=== PATIENT | female | born 1985 | race Caucasian/White ===

== ENCOUNTER → 2023-11-27 | Emergency (ER) | payer SELFPAY ==
[~2023-11-27] MED LIST: DIAZEPAM 5 MG TABLET ONE; LORazepam 2 MG/ML VIAL ONE; lisinopriL 20 MG TAB ONE
[2023-11-27 13:49] LABS: Specific Gravity 1.008 (1.005-1.030)
[2023-11-27 13:50] LABS: Absolute Basophils 0.1 K/uL (0-0.5); Absolute Eosinophils 0.2 K/uL (0-0.5); Absolute Lymphocytes (CBC) 1.7 K/uL (0.7-4.9); Absolute Monocytes 0.6 K/uL (0.1-1.3); Absolute Neutrophil 5.1 K/uL (1.8-8.0); Basophils % 1.1 % (0-1.3); Eosinophils % 2.2 % (0-4.4); Hematocrit 39.6 % (36.0-45.0); Hemoglobin 13.4 g/dL (12.0-15.0); MCH 28.8 pg (27.0-35.0); MCHC 33.9 g/dL (32.0-36.0); MCV 84.9 fL (80-100); MPV 7.3 fL (7.6-11.3); Monocytes % 8.2 % (3.3-12.3); Neutrophils % 66.5 % (41.7-73.7); Nucleated Red Blood Cells % 0.1 % (0-0); Platelets 338 thou/uL (152-406); RBC Red Blood Cell Count 4.67 M/uL (3.86-4.86); Red Cell Distribution Width 16.6 % (12.1-15.2)
[2023-11-27 13:51] LABS: Specific Gravity 1.008 (1.005-1.030); Sqamous Epithelial <5 /HPF (None Seen); Urine Bacteria None Seen /HPF (<20); Urine Bilirubin NEGATIVE (Negative); Urine Blood Negative (Negative); Urine Clarity Turbid (Clear); Urine Color Colorless (Yellow); Urine Culture Reflex Order NOT NEEDED; Urine Glucose NEGATIVE (Negative); Urine Ketones NEGATIVE (Negative); Urine Microscopic Reflex YN ORDER UMIC; Urine Nitrite NEGATIVE (Negative); Urine Protein NEGATIVE (Negative); Urine RBC <5 /HPF (None Seen); Urine Urobilinogen Normal (Normal); Urine WBC <5 /HPF (<5); Urine pH 6.5 (5.0-7.0)
[2023-11-27 14:34] LABS: Barbiturates NEGATIVE (NEGATIVE); Benzodiazepines NEGATIVE (NEGATIVE); Cocaine NEGATIVE (NEGATIVE); METHAMPHETAM NEGATIVE (NEGATIVE); Methadone NEGATIVE (NEGATIVE); Opiates NEGATIVE (NEGATIVE); Phencyclidine NEGATIVE (NEGATIVE); THC Cannibis NEGATIVE (NEGATIVE)
[2023-11-27 14:40] LABS: Platelet Estimate ADEQ; White Blood Cell Scan OK (OK)
[2023-11-27 14:41] LABS: Blood Morphology Comment NOT SEEN (NOT SEEN)
[2023-11-27 14:51] LABS: PT Prothrombin Time 11.4 SECONDS (9.5-12.5); PTT, Activated Partial Thromb 34.4 SECONDS (24.3-36.9); Protime INR 1.04
[2023-11-27 15:04] LABS: ALT/SGPT 40 U/L (13-56); AST/SGOT 20 U/L (15-37); Albumin 3.7 g/dL (3.4-5.0); Albumin/Globulin Ratio 0.9 (1.1-1.8); Alkaline Phosphatase 74 U/L (45-117); Anion Gap 7.9 mEq/L (5.0-15.0); BUN Blood Urea Nitrogen 12 mg/dL (7-18); Bicarbonate 27 mEq/L (21-32); Bilirubin Direct 0.1 mg/dL (0-0.2); Bilirubin Indirect, Calculated 0.2 mg/dL (0.2-0.8); Bilirubin Total 0.3 mg/dL (0.2-1.0); Globulin 4.2 g/dL (2.3-3.5); Glomerular Filtration Rate 76 ml/min (=/>90); Glucose Level 101 mg/dL (74-106); Potassium 3.9 mEq/L (3.5-5.1); Protein, Total 7.9 g/dL (6.4-8.2); Sodium Level 138 mEq/L (136-145)
--- NOTE | 2023-11-27 15:32 | EDPHYS ---
Physician Documentation [facility] Name: Jenise Rubio Age: 38 yrs Sex: Female : 1985 Arrival Date: 11/27/2023 Time: 13:14 Bed 15 Private MD: ED Physician Axel Henson HPI: 11/26 13:20 This 38 yrs old Female presents to ER via Unassigned with complaints of suicidal kb ideations. 13:21 Patient is a 38-year-old female who presents for suicidal ideations that started 2 days kb ago. Patient is currently at [facility] for rehab and states that her plan was to either cut her wrist or walk into traffic. Patient states she knows she needs to be hospitalized for this because she has had a previous attempt approximately 10 years ago.. 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 - Social history:: Smoking status: Patient denies any tobacco usage or history of. ROS: 13:20 Constitutional: As per HPI kb Exam: 13:20 Constitutional: This is a well developed, well nourished patient who is awake, alert, kb and in no acute distress. Head/Face: Normocephalic, atraumatic. ENT: Moist Mucous membranes Cardiovascular: Regular rate Respiratory: Respirations even and unlabored. No increased work of breathing. Talking in full sentences Abdomen/GI: Soft, non-tender. No distention Skin: Warm, dry with normal turgor. Normal color. MS/ Extremity: Pulses equal, no cyanosis. Neurovascular intact. Full, normal range of motion. Neuro: Awake and alert, GCS 15, oriented to person, place, time, and situation. Moves all extremities. Normal gait. 13:22 Psych: Behavior/mood is pleasant, cooperative, Affect is calm, Oriented to person, kb place, time, Patient having thoughts of suicide. Plan for suicide is cut wrist or walk into traffic 13:52 ECG was reviewed by the Attending Physician. kb Vital Signs: 13:22 BP 145 / 74; Pulse 84; Resp 18; Temp 98; Pulse Ox 99% on R/A; Weight 79.38 kg; Height 5 mb9 ft. 2 in. ; Pain 0/10; 21:38 BP 111 / 72; Pulse 76; Resp 19; Temp 98.9; Pulse Ox 97% on R/A; vk 11/27 06:46 BP 129 / 92; Pulse 92; Resp 19; Temp 98.1; Pulse Ox 97% on R/A; vk 11/26 13:22 Body Mass Index 32.01 (79.38 kg, 157.48 cm) mb9 11/26 13:22 Pain Scale: Adult mb9 MDM: 11/26 13:17 Patient medically screened. kb 13:22 Differential diagnosis: acute psychotic break, depression, suicidal ideations. Data kb reviewed: vital signs, nurses notes. Historians other than the Patient: EMS: [facility]. 15:31 Counseling: I had a detailed discussion with the patient and/or guardian regarding the kb historical points, exam findings, and any diagnostic results supporting the discharge/admit diagnosis, lab results, the need to transfer to another facility, [facility] does not immediately have the required specialist. 11/27 06:27 ED course: Was accepted to [facility] 6:2 8 in the morning. Plan to sp4 transfer with EMS.. 11/26 13:17 Order name: Acetaminophen; Complete Time: 15:13 kb 11/26 13:17 Order name: Basic Metabolic Panel; Complete Time: 15:13 kb 11/26 13:17 Order name: CBC with Diff; Complete Time: 14:42 kb 11/26 13:17 Order name: ETOH Level; Complete Time: 15:13 kb 11/26 13:17 Order name: Hepatic Function; Complete Time: 15:13 kb 11/26 13:17 Order name: PT-INR; Complete Time: 14:52 kb 11/26 13:17 Order name: Test, Urine; Complete Time: 13:51 kb 11/26 13:17 Order name: Ptt, Activated; Complete Time: 14:52 kb 11/26 13:17 Order name: Salicylate; Complete Time: 16:21 kb 11/26 13:17 Order name: Urinalysis w/ reflexes; Complete Time: 13:51 kb 11/26 13:17 Order name: Urine Drug Screen; Complete Time: 14:42 kb 11/26 14:41 Order name: CBC Smear Scan; Complete Time: 14:42 EDMS 11/26 13:17 Order name: EKG; Complete Time: 13:18 kb 11/26 13:17 Order name: EKG - Nurse/Tech; Complete Time: 13:30 kb 11/26 13:17 Order name: IV Saline Lock; Complete Time: 13:35 kb 11/26 13:17 Order name: Labs collected and sent; Complete Time: 13:35 kb 11/26 13:17 Order name: Suicide Precautions; Complete Time: 13:30 kb 11/26 13:17 Order name: Suicide Screening ([place]); Complete Time: 13:30 kb 11/26 13:57 Order name: Labs - recollect needed: all specimens; Complete Time: 14:17 ll1 EC/20 13:52 Rate is 95 beats/min. Rhythm is regular. QRS [place] is Normal. GA interval is normal at kb 134 msec. QRS interval is normal at 94 msec. QT interval is normal at 452 msec. Administered Medications: 14:24 Drug: Ativan IVP 1 mg IVP once Route: IVP; Site: right antecubital; mb9 16:26 Follow up: Response: No adverse reaction mb9 23:05 Drug: Ativan (LORazepam) 1 mg IVP once Route: IVP; Site: right antecubital; vc1 11/27 05:57 Follow up: Response: No adverse reaction; Marked relief of symptoms jw7 06:53 Drug: Lisinopril PO 20 mg PO once Route: PO; jw7 07:12 Follow up: Response: No adverse reaction bp 06:53 Drug: Diazepam PO 10 mg PO once Route: PO; jw7 07:12 Follow up: Response: No adverse reaction bp 07:10 Not Given (MED UNAVAILABLEe): [id number] mcg PO once bp Disposition: 06:27 Co-signature as Attending Physician, Axel Henson MD I agree with the assessment sp4 and plan of care. I reviewed the patient's care provided by Advanced Practice Provider \T\ agree w/ the diagnosis \T\ care plan. I personally saw the pt \T\ performed a substantive portion of the visit, incldng all aspects of the (History/Exam/Medical Decision Making). Disposition Summary: 11/27/23 15:32 Transfer Ordered Notes: Transfer Location: Psych Facility kb Reason: Higher level of care kb Condition: Stable kb Problem: new kb Symptoms: are unchanged kb Accepting Physician: Blanca Dash MD (11/28/23 07:13) bp Diagnosis - Suicidal ideations kb Forms: - Medication Reconciliation Form kb - SBAR form kb Signatures: Dispatcher [employer] EDMS Denice Andrew, SEAT BUILDER-C SEAT BUILDER-Jatinder [place], RN RN bp Amado Velazquez RN RN ll1 Cami Gamez RN RN vc1 Abbey Noonan RN RN jw7 Melody Greco RN RN mb9 Axel Henson MD MD sp4 Corrections: (The following items were deleted from the chart) 06:27 11/26 15:32 dR sorto sp4 11/27 07:13 06:27 Blanca Dash MD sp4 bp
--- NOTE | 2023-11-27 15:32 | ER ---
Nurse's Notes [facility] Name: Jenise Rubio Age: 38 yrs Sex: Female : 1985 Arrival Date: 11/27/2023 Time: 13:14 Bed 15 Private MD: Diagnosis: Suicidal ideations Presentation: 11/26 13:22 Chief complaint: EMS states: "toned out for having suicidal thoughts after leaving [facility] rehab for alcohol abuse. Pt states since starting medicine for Bipolar, Invega, she's been having these thoughts. Pt states she wants to cut herself and run into ongoing traffic.". Coronavirus screen: Vaccine status: Patient reports being unvaccinated. Ebola Screen: No symptoms or risks identified at this time. Initial Sepsis Screen: Does the patient meet any 2 criteria? No. Patient's initial sepsis screen is negative. Does the patient have a suspected source of infection? No. Patient's initial sepsis screen is negative. Risk Assessment: Do you want to hurt yourself or someone else? Patient reports desire/thoughts of hurting themselves or someone else. Provider notified. Onset of symptoms was November 27, 2023. 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 - Social history:: Smoking status: Patient denies any tobacco usage or history of. Screenin:28 [facility] ED Fall Risk Assessment (Adult) History of falling in the last 3 months, 9 including since admission No falls in past 3 months (0 pts) Confusion or Disorientation No (0 pts) Intoxicated or Sedated No (0 pts) Impaired Gait No (0 pts) Mobility Assist Device Used No (0 pt) Altered Elimination No (0 pt) Score/Fall Risk Level 0 - 2 = Low Risk Oriented to surroundings, Maintained a safe environment, Educated pt \\T\\ family on fall prevention, incl call for assistance when getting out of bed. Abuse screen: Denies threats or abuse. Nutritional screening: No deficits noted. Tuberculosis screening: No symptoms or risk factors identified. Assessment: 13:20 Reassessment: SI precautions in place. Sitter at bedside. mb9 13:28 General: Appears in no apparent distress. Behavior is calm, cooperative. Pain: Denies mb9 pain. Neuro: Lozano Agitation-Sedation Scale (RASS): 0 - Alert and Calm Level of Consciousness is awake, alert, obeys commands, Oriented to person, place, time, situation, Appropriate for age. Cardiovascular: Patient's skin is warm and dry. Respiratory: Airway is patent Respiratory effort is even, unlabored, Respiratory pattern is regular, symmetrical. GI: Abdomen is round non-distended. : No signs and/or symptoms were reported regarding the genitourinary system. EENT: No signs and/or symptoms were reported regarding the EENT system. Derm: Skin is pink, warm \\T\\ dry. Musculoskeletal: Range of motion: intact in all extremities. 14:20 Reassessment: Patient and/or family updated on plan of care and expected duration. Pain mb9 level reassessed. Patient is alert, oriented x 3, equal unlabored respirations, skin warm/dry/pink. SI precautions in place. Sitter at bedside. 15:20 Reassessment: Patient and/or family updated on plan of care and expected duration. Pain mb9 level reassessed. Patient is alert, oriented x 3, equal unlabored respirations, skin warm/dry/pink. SI precautions in place. Sitter at bedside. 16:20 Reassessment: Patient and/or family updated on plan of care and expected duration. Pain mb9 level reassessed. Patient is alert, oriented x 3, equal unlabored respirations, skin warm/dry/pink. SI precautions in place. Sitter at bedside. 17:20 Reassessment: Patient and/or family updated on plan of care and expected duration. Pain mb9 level reassessed. Patient is alert, oriented x 3, equal unlabored respirations, skin warm/dry/pink. SI precautions in place. Sitter at bedside. 18:20 Reassessment: Patient and/or family updated on plan of care and expected duration. Pain mb9 level reassessed. Patient is alert, oriented x 3, equal unlabored respirations, skin warm/dry/pink. SI precautions in place. Sitter at bedside. 20:00 General: Appears in no apparent distress. comfortable, Behavior is calm, cooperative, vc1 drowsy. Pain: Denies pain. Neuro: Level of Consciousness is awake, obeys commands, lethargic, Oriented to person, place, time, situation, Appropriate for age. Cardiovascular: Patient's skin is warm and dry. Cardiovascular: Heart tones S1 S2. Respiratory: Airway is patent Respiratory effort is even, unlabored, Respiratory pattern is regular, symmetrical, Breath sounds are clear. GI: No deficits noted. No signs and/or symptoms were reported involving the gastrointestinal system. GI: No deficits noted. No signs and/or symptoms were reported involving the gastrointestinal system. Abdomen is round non-distended. : No deficits noted. No signs and/or symptoms were reported regarding the genitourinary system. EENT: No deficits noted. No signs and/or symptoms were reported regarding the EENT system. Derm: No deficits noted. Skin is pink, warm \\T\\ dry. Musculoskeletal: No deficits noted. No signs and/or symptoms reported regarding the musculoskeletal system. 11/27 05:00 General: Appears in no apparent distress. comfortable, Behavior is calm, cooperative. jw7 Pain: Denies pain. Neuro: Lozano Agitation-Sedation Scale (RASS): 0 - Alert and Calm Level of Consciousness is awake, alert, obeys commands, Oriented to person, place, time, situation. Respiratory: Airway is patent Trachea midline Respiratory effort is even, unlabored, Respiratory pattern is regular, symmetrical, Breath sounds are clear bilaterally. GI: Abdomen is round non-distended, Bowel sounds present X 4 quads. Abd is soft and non tender X 4 quads. : No deficits noted. No signs and/or symptoms were reported regarding the genitourinary system. EENT: No deficits noted. No signs and/or symptoms were reported regarding the EENT system. Derm: Skin is intact, is healthy with good turgor, Skin is dry, Skin is normal, Skin temperature is warm. Musculoskeletal: Circulation, motion, and sensation intact. Range of motion: intact in all extremities. 06:22 General: Nurse to nurse with [facility]. vc1 07:10 Reassessment: EMS AT B/S FOR TRANSPORT. bp Psych: 11/26 13:30 [place] Suicide Severity Screening: In the past month, have you wished you were mb9 or wished you could go to sleep and not wake up? Patient responds "yes." Based off the client's responses additional C-SSRS screening is required. "In the past month, have you actually had any thoughts of killing yourself?" Patient responds "yes." Based off the client's response additional [place] suicide severity screening questions to be further documented on paper forms. "In your lifetime, have you ever done anything, started to do anything, or prepared to do anything to end your life?" Patient responds "yes." Patient reports suicidal intent within 3 past months. Subjective: Delusions are denied, Hallucinations are denied Having thoughts of suicide. Plan for suicide is cut herself and run into oncoming traffic. Objective: Patient is cooperative, Speech is normal, Affect is appropriate. Interventions: Removed personal items and placed in bag. Patient placed in hospital gown. Searched person for dangerous items. Urine collected and sent for urine drug test. Belonging list filled out. Safety Checks: Personal items have been removed. Door is open. No visitors are present at this time. Pt denies substance abuse. Commitment: Patient will be a voluntary commitment. 22:00 Consultation: On phone with [facility]. vc1 Vital Signs: 13:22 BP 145 / 74; Pulse 84; Resp 18; Temp 98; Pulse Ox 99% on R/A; Weight 79.38 kg; Height 5 mb9 ft. 2 in. ; Pain 0/10; 21:38 BP 111 / 72; Pulse 76; Resp 19; Temp 98.9; Pulse Ox 97% on R/A; vk 11/27 06:46 BP 129 / 92; Pulse 92; Resp 19; Temp 98.1; Pulse Ox 97% on R/A; vk 11/26 13:22 Body Mass Index 32.01 (79.38 kg, 157.48 cm) mb9 11/26 13:22 Pain Scale: Adult mb9 ED Course: 11/26 13:17 Patient arrived in ED. kb 13:17 [facility] kb 13:17 Wendy Riggins MD is Attending Physician. kb 13:22 Breneman, Sera, RN is Primary Nurse. mb9 13:22 Arm band placed on Patient placed in an exam room, on a stretcher. ld1 13:25 Triage completed. mb9 13:27 Bed in low position. Warm blanket given. mb9 13:29 EKG done, by ED staff, reviewed by Denice SCHULER. mb9 13:31 No provider procedures requiring assistance completed. mb9 14:02 Inserted saline lock: 20 gauge in right antecubital area, using aseptic technique. mb9 16:02 called [facility] talked to Tanesha.\\T\\[phone]. sp 16:25 Delmy with [facility] called -- will be here in 1+ hour. sp 17:11 Delmy called and stated she had a community call and had to divert to this call. She sp will call with she is on her way to [facility]. 19:02 Report given to MELO Almanza. mb9 19:51 Primary Nurse role handed off by Melody Greco RN mb9 21:29 Delmy with [facility] called and asked if we could email clinicals. wm 21:40 Warm blanket given. vk 21:58 Emailed clinical's as requested to Delmy with [facility]. wm 22:33 Cami Gamez, MELO is Primary Nurse. vc1 22:36 Assisted to bathroom. vk 23:02 Faxed current chart with [facility] recommendation to all Psych Facilities, awaiting acceptance. 23:02 Diet: Patient given snack. vk 23:07 PO fluids given. vc1 11/27 06:18 [facility] called to do a Nurse to Nurse, and accepted by Dr. Garcia, per [facility] \\T\\ [id number]. 06:18 EMS accepted for transport with an ETA \\T\\ [id number]. wm 06:25 Attending Physician role handed off by Wendy Riggins MD sp4 06:25 Axel Henson MD is Attending Physician. sp4 06:47 Diet: Patient given snack. Patient given juice. vk 07:10 Provided Education on: N/A. bp 07:10 IV discontinued, intact, bleeding controlled, No redness/swelling at site. Pressure bp dressing applied. Administered Medications: 11/26 14:24 Drug: Ativan IVP 1 mg IVP once Route: IVP; Site: right antecubital; mb9 16:26 Follow up: Response: No adverse reaction mb9 23:05 Drug: Ativan (LORazepam) 1 mg IVP once Route: IVP; Site: right antecubital; vc1 11/27 05:57 Follow up: Response: No adverse reaction; Marked relief of symptoms jw7 06:53 Drug: Lisinopril PO 20 mg PO once Route: PO; jw7 07:12 Follow up: Response: No adverse reaction bp 06:53 Drug: Diazepam PO 10 mg PO once Route: PO; jw7 07:12 Follow up: Response: No adverse reaction bp 07:10 Not Given (MED UNAVAILABLEe): [id number] mcg PO once bp Medication: 11/26 13:28 VIS not applicable for this client. mb9 Outcome: 15:32 ER care complete, transfer ordered by . kb 11/27 07:10 Transferred by ground EMS Note: [facility] bp Condition: stable Instructed on the need for transfer, 07:13 Patient left the ED. bp Signatures: Denice Andrew, STAGE SET UP WORKER-C STAGE SET UP WORKER-CkMaribel Charles Brian RN RN bp Geneva Omer RN RN ld1 Tania Pierre Vanessa, RN RN vc1 Abbey Noonan RN RN jw7 Melody Greco RN RN mb9 Axel Henson MD MD sp4 Ruchi Means Corrections: (The following items were deleted from the chart) 11/26 13:27 13:22 BP 145 / 74; Resp 18bpm; Pulse Ox 99% RA; mb9 mb9
[2023-11-28 07:20] VITALS: BP 129/92; TEMP 98.1; O2SAT 97
--- NOTE | 2023-11-28 14:26 | EKG ---
Test Date: 2023-11-27 Test Time: 12:49:46 Digital Analyst: MARCELLO MEASUREMENT RESULTS: Intervals: Rate: 95 IN: 134 QRSD: 94 QT: 360 QTc: 452 [place]: P: 60 IN: 134 QRS: 17 T: 35 INTERPRETIVE STATEMENTS: Normal sinus rhythm Normal ECG No previous ECG available for comparison Electronically Signed On 11-28-23 14:23:23 CDT by Travon Feliciano
== END ==
LOC: ER 13:14
DX: R45.851 Suicidal ideations (principal); F31.9 Bipolar disorder, unspecified; Z91.040 Latex allergy status; Z91.048 Other nonmedicinal substance allergy status
CPT/HCPCS: 36415; 80048; 80076; 80143; 80179; 80307; 81001; 81025; 82077; 85025; 85610; 85730; 93005